=== PATIENT | male | born 1990 | race Two or more races ===

== ENCOUNTER 2016-08-10 16:31 | Emergency (ER) | payer SELFPAY ==
[~2016-08-10] VITALS: Ht 170.2 cm; Wt 77.1 kg
[2016-08-10 17:04] VITALS: BP 138/62
[2016-08-10 17:19] LABS: BILIRUBIN,URINE NEGATIVE (NEG); GLUCOSE,URINE NEGATIVE (NEG); NITRITE,URINE NEGATIVE (NEG); PROTEIN,URINE NEGATIVE (NEG-TRACE); UROBILINOGEN,URINE 0.2 mg/dL (0.2 mg/dL)
[2016-08-10 17:40] LABS: BACTERIA,URINE 0 /HPF (0-FEW); RBC,URINE 0 /HPF (0-2); SQUAMOUS EPITHELIAL CELL,UR OCC /LPF
[2016-08-10] MEDS ORDERED: DIPH25CA58 PO (17:49)
[2016-08-10] MEDS ORDERED: PRED50TA PO (17:49)
[2016-08-10] MEDS ORDERED: ACYC400T PO (17:49)
--- NOTE | 2016-08-10 17:49 | PHYS DOC ---
Past Medical History Past Medical History: No Pertinent History Past Surgical History: No Surgical History Alcohol Use: Occasionally Drug Use: None Adult General Chief Complaint Chief Complaint: PENIS PROBLEM HPI HPI Patient is a 25-year-old male with no significant medical history who presents with a painful rash on his penis that began a week ago. Patient denies any concerns for STDs. He states he is . He is in the ED with the who is the [employer] for [employer] Review of Systems Review of Systems Constitutional: Denies fever or chills [] Eyes: Denies change in visual acuity, redness, or eye pain [] HENT: Denies nasal congestion or sore throat [] Respiratory: Denies cough or shortness of breath [] Cardiovascular: No additional information not addressed in HPI [] GI: Denies abdominal pain, nausea, vomiting, bloody stools or diarrhea [] : Denies dysuria or hematuria [] Musculoskeletal: Denies back pain or joint pain [] Integument: penile rash Neurologic: Denies headache, focal weakness or sensory changes [] Endocrine: Denies polyuria or polydipsia [] Physical Exam Physical Exam Constitutional: Well developed, well nourished, no acute distress, non-toxic appearance. [] HENT: Normocephalic, atraumatic, bilateral external ears normal, oropharynx moist, no oral exudates, nose normal. [] Eyes: PERRLA, EOMI, conjunctiva normal, no discharge. [] Neck: Normal range of motion, no tenderness, supple, no stridor. [] Cardiovascular:Heart rate regular rhythm, no murmur [] Lungs & Thorax: Bilateral breath sounds clear to auscultation [] Abdomen: Bowel sounds normal, soft, no tenderness, no masses, no pulsatile masses. [] Male External penis appears erythematous especially on the penis head and base. Skin: Warm, dry, no erythema, no rash. [] Back: No tenderness, no CVA tenderness. [] Extremities: No tenderness, no cyanosis, no clubbing, ROM intact, no edema. [] Neurologic: Alert and oriented X 3, normal motor function, normal sensory function, no focal deficits noted. [] Psychologic: Affect normal, judgement normal, mood normal. [] Current Patient Data Vital Signs Vital Signs Date Time Temp Pulse Resp B/P (MAP) Pulse Ox O2 Delivery O2 Flow Rate FiO2 5/22/17 17:04 98.8 85 18 96 Room Air 98.8 Lab Values Laboratory Tests Test 08/10/16 16:35 Urine Color Yellow Urine Clarity Clear Urine pH 6.0 Urine Specific [place] 1.025 Urine Protein Negative mg/dL (NEG-TRACE) Urine Glucose (UA) Negative mg/dL (NEG) Urine Ketones (Stick) Negative mg/dL (NEG) Urine Blood Negative (NEG) Urine Nitrite Negative (NEG) Urine Bilirubin Negative (NEG) Urine Urobilinogen Dipstick 0.2 mg/dL (0.2 mg/dL) Urine Leukocyte Esterase Negative (NEG) Urine RBC 0 /HPF (0-2) Urine WBC 1-4 /HPF (0-4) Urine Squamous Epithelial Cells Occ /LPF Urine Bacteria 0 /HPF (0-FEW) Urine Mucus Slight /LPF EKG EKG [] Radiology/Procedures Radiology/Procedures [] Course & Med Decision Making Course & Med Decision Making Pertinent Labs and Imaging studies reviewed. (See chart for details) This is a 25-year-old male patient with no concern for STDs who presents today with a penis rash that began a week ago. Patient's entire penis appears erythematous. Lesions were swabbed for herpes and he was started on acyclovir which will not do much considering he has had the symptoms for week. Urine analysis is negative for infection. He was provided instructions to follow-up with the urologist which are provided in a week if symptoms continue. Dragon Disclaimer Dragon Disclaimer This electronic medical record was generated, in whole or in part, using a voice recognition dictation system. Departure Departure Impression: Primary Impression: Lesion of penis Disposition: HOME, SELF-CARE Condition: STABLE Referrals: NO PCP (PCP) Follow-up with the health department or the provided urologist in one week RICK IRWIN MD Patient Instructions: Rash Additional Instructions: You were seen for penis lesions that were sent to lab to be checked for herpes. We started you on acyclovir. This is an antiviral medicine for Herpes. We will call you in 3-7 days and let you know if you test positive for herpes. Scripts Diphenhydramine Hcl (BENADRYL) 25 Mg Capsule 1 CAP PO Q4HRS W/A, #30 CAP 1 Refill Prov: MUTUNGA,FRANCO POST [employer]ER 08/10/16 Prednisone (PREDNISONE) 50 Mg Tablet 1 TAB PO DAILY, #5 TAB Prov: FRANCO TEIXEIRA APRN 08/10/16 Acyclovir (ACYCLOVIR) 400 Mg Tablet 1 TAB PO TID, #30 TAB Prov: FRANCO TEIXEIRA APRN 08/10/16 FRANCO TEIXEIRA APRN August 10, 2016 17:49
[2016-08-13 19:17] LABS: HERPES SIMPLEX TYPE 1 Negative (Negative); HERPES SIMPLEX TYPE 2 Positive (Negative)
== END 2016-08-10 17:56 | disposition home or self-care (01) ==
LOC: ER 16:31
DX: N48.89 Other specified disorders of penis (principal)
CPT/HCPCS: 81001; 87491; 87529; 87591; 99284